=== PATIENT | female | born 1995 | race African-American/Black ===

== ENCOUNTER 2018-02-03 23:33 | Emergency (ER) | payer SELFPAY ==
[2018-02-03 23:48] VITALS: BP 112/72; PULSE 81; RESP 16; TEMP 36.4; O2SAT 98
--- NOTE | 2018-02-03 23:59 | ED.GENADUL_ITS ---
Discharge Plan Discharge Details Chief Complaint: RashLesion Primary Care Provider: YUNIOR,LOCAL ED Provider: Kota Cartwright Home Meds and New Rx's Prescriptions: No Action No Known Home Meds RF: 0 Medical Decision Making MDM Narrative Medical decision making narrative: 22-year-old female presents with history of recurrent small areas of abscess around the hair follicles of her left inner thigh. There is one area that was worsened today. She has not had fever, drainage, redness. She has otherwise recently been well. We will place on barrier cream and oral antibiotics; discussed with her return precautions to the ER. HPI - General Adult General Mode of arrival: ambulatory . Date/Time Provider Initiated Documentation: 02/03/18 23:40 . Limitations to Documentation: no limitations . Information obtained by: patient . History of Present Illness 22 year old F presents to the emergency department with the chief complaint of Folliculitis, described as moderate, Quality is described as aching, and is localized to the left and lower extremity. Patient reports no radiation. Patient started experiencing this day(s) and it has been constant. No relieving factors improve symptom(s), No exacerbating factors reported . Patient notes no other symptoms.. Patient did receive the following treatments prior to arrival, none Related Data Home Medications Medication Instructions Recorded Confirmed Unknown [No Known Home Meds] 03/22/17 02/03/18 Allergies Allergy/AdvReac Type Severity Reaction Status Date / Time No Known Allergies Allergy Unverified 02/03/18 23:47 General Stated Complaint: RashLesion DORENE: 3 Review of Systems Review of Systems 8 systems reviewed, [facility] Social History Smoking/Tobacco Use Status: Never Exam Narrative Exam Narrative: GEN: awake, alert, oriented 3. Pleasant, well groomed, interactive. HEAD: Normocephalic, atraumatic ENT: Mucous membranes moist, oropharynx unremarkable, External ear exam unremarkable EYES: PERRL, EOMI NECK: Full ROM, no AMY, no menigismus EXT: Full ROM, no edema, no rash. And neck: There are areas of folliculitis on the left proximal medial thigh. Minimally tender. No surrounding erythema, no drainage Neuro: Grossly normal neurologic exam, conversant, interactive. Psych: Speech fluent, thoughts congruent, affect normal Course Vital Signs Temperature 36.4 C L 02/03/18 23:48 Pulse 81 02/03/18 23:48 Respiratory Rate 16 02/03/18 23:48 Blood Pressure 112/72 02/03/18 23:48 Pulse Oximetry 98 02/03/18 23:48 Temperature 36.4 C L 02/03/18 23:48 Pulse 81 02/03/18 23:48 Respiratory Rate 16 02/03/18 23:48 Blood Pressure 112/72 02/03/18 23:48 Pulse Oximetry 98 02/03/18 23:48
[2018-02-04 00:36] VITALS: BP 112/72; PULSE 80; RESP 16; TEMP 36.4; O2SAT 98
[2018-02-04] MEDS: Sulfameth/Trimeth DS TAB 1 TAB PO (00:36)
== END 2018-02-04 00:43 | disposition home or self-care (01) ==
PROVIDERS: Emergency Provider Emergency Medicine
DX: L73.9 Follicular disorder, unspecified (principal)
CPT/HCPCS: 96374; 99284; 99283

== ENCOUNTER 2019-01-05 23:35 | Emergency (ER) | payer MEDICAID, SELFPAY ==
[2019-01-05 23:38] VITALS: BP 114/68; PULSE 79; RESP 22; TEMP 35.9; O2SAT 97
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
[2019-01-06 00:24] LABS: Bilirubin Negative (Negative); Blood Negative (Negative); Clarity Clear (Clear); Glucose Negative (Negative); Ketones Negative (Negative); Leukocyte Esterase Small (Negative); Nitrite Negative (Negative); Specific Gravity 1.015 (1.005-1.025); pH >= 9.0 (5-8)
[2019-01-06 00:27] LABS: *AMPHETAMINES SCREEN URINE Negative (Negative); *BARBITURATES SCREEN URINE Negative (Negative); *BENZODIAZEPINES SCREEN URINE Negative (Negative); Cannabinoids THC Negative (Negative); Cocaine Screen,Urine Negative (Negative); METHADONE URINE SCREEN Negative (Negative); OPIATES URINE SCREEN Negative (Negative)
[2019-01-06 00:32] LABS: Tricyclic Antidepressants Negative (Negative)
[2019-01-06 00:33] LABS: Bacteria Few HPF (Negative); C & S Indicated? No/Sq. Contamination; Casts Negative LPF (Negative); Crystals Few Amorphous HPF (Negative); Epithelial Cells Many HPF (Negative); Mucus Negative (Negative); RBC 0-2 (0-2); WBC 0-2 HPF (0-5)
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
== END 2019-01-06 01:10 | disposition home or self-care (01) ==
LOC: ER 01-06 02:27
PROVIDERS: Emergency Provider Student in an Organized Health Care Education/Training Program
DX: F32.9 Major depressive disorder, single episode, unspecified (principal); R45.851 Suicidal ideations; S60.812A Abrasion of left wrist, initial encounter; W26.0XXA Contact with knife, initial encounter; Z73.3 Stress, not elsewhere classified
CPT/HCPCS: 36415; 80053; 80307; 81025; 99283; 80320; 80329; 81003; 81015; 84443; 85025

== ENCOUNTER 2019-03-18 02:41 | Emergency (ER) | payer MEDICAID, SELFPAY ==
[2019-03-18 02:43] VITALS: BP 121/70; PULSE 73; RESP 18; TEMP 36.7; O2SAT 100
--- NOTE | 2019-03-18 03:06 | ED.GENADUL_ITS ---
Discharge Plan Disposition Patient Disposition: HOME Discharge Details Chief Complaint: Abd Prob Clinical Impression: Menses painful, Abdominal pain Primary Care Provider: ConsueloLocal ED Provider: Luke Hardwick Home Meds and New Rx's Prescriptions: No Action No Known Home Meds RF: 0 Discharge Instructions Instructions: Dysmenorrhea (ED), Abdominal Pain (ED) Additional Instructions: Please follow-up with [facility]. Call today to arrange timely follow-up. Please take ibuprofen over the counter. Take 600mg by mouth every 6 hours as needed for pain. Please take acetaminophen (tylenol) - 650mg every 6 hours by mouth as needed for pain. Return to the ER for any worsening or new concerning symptoms. Referrals: [facility] [Provider Group] Discharge Data Discharge Date/Time-TO BE ENTERED AT DEPARTURE: 03/18/19 08:36 Medical Decision Making 3:11 --23-year-old female with history of chronic intermittent painful menses, here with severe lower abdominal cramping that started earlier this evening. Pain is consistent with prior painful menstruation. Pain is tender in lower abdomen suprapubic. No peritoneal findings. Consider . I will check a urine test. Plan to treat pain with Toradol 15mg IM and Dilaudid 1mg IM. Plan to reassess. -- Urine neg. 5:00 -- On reassessment, patient completely pain free. Abdominal exam benign with no tenderness. Patient requesting discharge but feels fatigued and dizzy from analgesics. Plan to observe further in ED until symptoms improve. 5:50 -- Patient resting comfortably. Continues to be pain free. Discussed pelvic exam and patient provided informed refusal. 7:15 -- Patient now awake. Ambulating and no discomfort. Plan will be for her to follow-up with [facility]. Disposition decision was made weighing the risks and benefits of hospitalization versus outpatient treatment, the risk for further decompensation, and the patient's wishes. The patient was stable and requested discharge. Prior to discharge, my usual and customary return precautions were reviewed with the patient - this included follow-up instructions and reason to return to the emergency department if condition worsens, does not improve as expected, or other new concerns arise. HPI General Mode of arrival: ambulatory . Date/Time Provider Initiated Documentation: 03/18/19 02:53 . Limitations to Documentation: no limitations . Information obtained by: patient . HPI Narrative: 23-year-old female with history of chronic intermittent painful menses, here tonight with severe crampy lower abdominal pain described as cramping. Patient notes she started to have menstrual bleeding today. Bleeding is been normal, mild. She started to have cramping earlier today and cramping has been much worse tonight. Pain is now severe. Pain is localized to her lower abdomen in the suprapubic area and bilaterally. Pain is not focal to one side. She has no associated nausea or vomiting. No associated fever. Pain is exactly the same although slightly less severe than prior ED visit for dysmenorrhea. Patient denies any recent abnormal vaginal discharge. She does not recall the last time she was sexually active. Related Data Home Medications Medication Instructions Recorded Confirmed Unknown [No Known Home Meds] 01/05/19 03/18/19 Allergies Allergy/AdvReac Type Severity Reaction Status Date / Time No Known Allergies Allergy Unverified 03/18/19 02:47 General Stated Complaint: Abd Prob DORENE: 4 Review of Systems All systems reviewed & are unremarkable except as noted in HPI and below Constitutional Constitutional: Denies fever(s) Genitourinary Genitourinary: Reports as per HPI, Denies dysuria and Denies vaginal discharge [facility] Social History Smoking/Tobacco Use Status: Never Alcohol Intake: never Drug use: Never Substance use type: does not use Do you feel safe at home: Yes Do you feel safe in your relationship?: Yes Additional Social history: Pt is not alone; reports that she talked to her boyfriend about not feeling like the relationship was where it should be who went to her family and they did not believe her. She denies any type of abuse with words of physical means. Exam Const General: uncomfortable and well developed Orientation: alert HENMT Mouth: moist mucous membranes Eyes Conjunctivae: normal conjunctivae Sclera: normal sclerae Resp Auscultation: clear to auscultation bilaterally, no rales, no rhonchi and no wheezes Cardio Jugular venous pressure: no JVD Rate: regular rate and not tachycardic Rhythm: regular rhythm GI Palpation: soft, not firm, no guarding, no masses, not rigid and tender suprapubicly; with no rebound tenderness Auscultation: normal bowel sounds Skin General skin exam: no rashes or lesions noted Neuro General: alert, awake and tone normal Extrem General: no edema Course Vital Signs Vital signs: Vital Signs Temperature 36.7 C 03/18/19 02:43 Pulse 73 03/18/19 02:43 Respiratory Rate 18 03/18/19 02:43 Blood Pressure 121/70 03/18/19 02:43 Pulse Oximetry 100 03/18/19 02:43 Temperature 36.7 C 03/18/19 02:43 Temperature Source Skin 03/18/19 02:43 Pulse 73 03/18/19 02:43 Respiratory Rate 18 03/18/19 02:43 Respiratory Effort 03/18/19 02:48 Blood Pressure 121/70 03/18/19 02:43 Blood Pressure Position Supine 03/18/19 02:43 Pulse Oximetry 100 03/18/19 02:43 Oxygen Delivery Method Room Air 03/18/19 02:43 Oxygen Flow Rate 0 03/18/19 02:43 Pain Level 8 03/18/19 02:43
[2019-03-18] MEDS: Ketorolac 15 MG/ML VIAL IM (03:17)
[2019-03-18] MEDS: HYDROmorphone 2 MG/ML VIAL 1 MG IM (03:17)
--- NOTE | 2019-03-18 05:45 | NUR.NOTE ---
Nursing Note: Pt resting in bed with eyes closed, denies pain at this time, will continue to monitor.
[2019-03-18 05:49] VITALS: BP 84/37; PULSE 63; RESP 15; TEMP 37; O2SAT 100
[2019-03-18 06:08] LABS: Bilirubin Negative (Negative); Blood Large (Negative); Clarity Sl Cloudy (Clear); Glucose Negative (Negative); Ketones Negative (Negative); Leukocyte Esterase Trace (Negative); Nitrite Negative (Negative); Specific Gravity 1.025 (1.005-1.025); Urobilinogen 0.2 EU/dL (Up TO 0.2); pH 5.5 (5-8)
[2019-03-18 06:09] LABS: Epithelial Cells Moderate HPF (Negative); RBC >50 (0-2)
[2019-03-18 06:10] LABS: Bacteria Few HPF (Negative); C & S Indicated? No/Sq. Contamination; Casts Negative LPF (Negative); Crystals Negative HPF (Negative); Mucus Negative (Negative)
[2019-03-18 07:01] VITALS: BP 92/54; PULSE 72; RESP 16; O2SAT 100
[2019-03-18 07:33] VITALS: BP 99/55; PULSE 70; RESP 16; O2SAT 100
[2019-03-18 08:40] VITALS: BP 105/64; PULSE 70; RESP 16; TEMP 37; O2SAT 100
== END 2019-03-18 08:36 | disposition home or self-care (01) ==
PROVIDERS: Emergency Provider Student in an Organized Health Care Education/Training Program
DX: N94.6 Dysmenorrhea, unspecified (principal); R10.30 Lower abdominal pain, unspecified
CPT/HCPCS: 96372; 99284; 81003; 81015; J1885

== ENCOUNTER 2019-06-14 09:10 | Emergency (ER) | payer MEDICAID, SELFPAY ==
[2019-06-14 09:21] VITALS: BP 121/101; PULSE 86; RESP 16; TEMP 37.1; O2SAT 100
--- NOTE | 2019-06-14 09:40 | W.ED.GENAD ---
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 Be sure to eat before taking this medication. Use Tylenol 1000 mg every 6 hours for severe pain if needed. Rest activities as tolerated. Consider warm compresses to your abdomen. Please follow-up with [facility] as an outpatient for reevaluation and to discuss appropriate management and further testing of your complaints. Please follow-up with Sedrick gardner at [facility] for reevaluation. Return for any alarming symptoms, worsening or concerns sooner if needed. Referrals: [facility] [Provider Group] Medical Decision Making This is a 23-year-old patient who presents for severe abdominal cramping associated with her menstrual period. Patient reports she began to menstruate yesterday had mild cramping while working, was able to sleep last night and awoke with moderate cramping today. Patient reports intermittent cramping which is difficult to tolerate. Patient reports light vaginal bleeding which is typical of her menstrual cycle. Patient reports intermittent severe periods. Patient denies any obvious pattern to severe periods for example every other month. Patient reports no vaginal discharge. Denies dysuria, urgency or frequency. Denies headache or dizziness. Patient has been seen for similar complaints multiple times in the remote past. Reports she typically receives an injection which is moderately helpful. [facility] despite being referred. Discussed the use of control to better manage her menstrual cycles however she reports control med is against where she is from. Patient denies any other concerns or complaints at this time. We will provide Toradol as well as Tylenol for discomfort and reexamine. Patient does report improved symptoms at this time although some cramping does persist. Patient offered pelvic examination and initially consents, then ultimately declines and would prefer to wait until non-menstruating to have pelvic examination. I have encouraged this patient follow-up with Sedrick gardner at the [facility] as well as follow-up with [facility]. Patient has been encouraged to do so in the past and I reiterated the importance of having local provider and ELECTRICIAN involvement. Discussed the use of control which she is unwilling to take at this time for symptomatic relief. Discussed use of Tylenol and Motrin, conservative treatments. Patient feels somewhat improved at this time and is requesting discharge home. Patient tolerating p.o. food and fluids. Patient's abdominal exam remains benign. The patient was stable and requested discharge. Prior to discharge, my usual and customary return precautions were reviewed with the patient - this included follow-up instructions and reasons to return to the Emergency Department if conditions worsens, does not improve as expected, or other new concerns arise. HPI General Date/Time Provider Initiated Documentation: 06/14/19 09:37. HPI Narrative: This is a 23-year-old patient presenting to the emergency room for lower abdominal cramping. Patient reports she began her menstrual cycle yesterday while working reports she had mild cramping which was tolerable. Patient reports this morning she awoke with more severe abdominal cramping. Patient reports this is typical of her menstrual cycles. Patient reports she has intermittent severe cramping which is difficult to tolerate. Patient has been seen in the emergency room for this multiple times in the past. Patient reports this is similar to what she is experienced in the past. Patient reports pain is intermittent, cramping will cause pain approximately 8 out of 10. Denies any nausea, vomiting or bowel changes associated. Patient denies obvious headache or dizziness. Patient reports menstrual bleeding is light, typical. Patient denies vaginal discharge. Patient denies any back Denies any fever or ill feeling. No other concerns or complaints. 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 Review of Systems All systems reviewed & are unremarkable except as noted in HPI and below Constitutional Constitutional: Denies chills, Denies fatigue, Denies fever(s), Denies headache(s) and Denies malaise ENT Ears, Nose, Mouth, and Throat: Denies headache(s) Gastrointestinal Gastrointestinal: Reports cramping, Denies nausea and Denies vomiting Genitourinary Genitourinary: Denies hematuria, Reports light periods, Reports dysmenorrhea, Denies dysuria, Denies flank pain, Denies urinary urgency, Denies vaginal discharge and Denies vaginal pruritus Neurologic Neurologic: Denies headache(s) Endocrine Endocrine: Denies fatigue [facility] Social History Smoking/Tobacco Use Status: Never Alcohol Intake: never Drug use: Never Substance use type: does not use Do you feel safe at home: Yes Do you feel safe in your relationship?: Yes Additional Social history: Pt is not alone; reports that she talked to her boyfriend about not feeling like the relationship was where it should be who went to her family and they did not believe her. She denies any type of abuse with words of physical means. Exam Narrative Exam Narrative: CONST: Tearful patient, in no acute distress. Well hydrated. Alert and oriented. NECK: Normal visual inspection. FROM. Trachea midline. No Midline tenderness. CHEST: Normal insepection of the chest. RESP: Normal respiratory effort. Speaking full sentences. No cough. No audible wheezing. No retractions. CARDIO: No JVD. No murmur, regular rate and rhythm. MUSCULOSKELETAL: Normal Gait. FROM of all extremities. GI: Bowel sounds present in all 4 quadrants. No abdominal pain on exam with palpation. No peritoneal signs, rebound or guarding. Back: No CVA tenderness bilaterally SKIN: Normal. Dry. No rashes. NEURO: Alert and awake. Speech clear. PSYCH: Tearful. Cooperative. Course Vital Signs Vital signs: Vital Signs Temperature 37.1 C 06/14/19 09:21 Pulse 86 06/14/19 09:21 Respiratory Rate 16 06/14/19 09:21 Blood Pressure 121/101 H 06/14/19 09:21 Pulse Oximetry 100 06/14/19 09:21 Temperature 37.1 C 06/14/19 09:21 Temperature Source Skin 06/14/19 09:21 Pulse 86 06/14/19 09:21 Respiratory Rate 16 06/14/19 09:21 Respiratory Effort Non-Labored 06/14/19 09:21 Blood Pressure 121/101 H 06/14/19 09:21 Blood Pressure Position Sitting 06/14/19 09:21 Pulse Oximetry 100 06/14/19 09:21 Pain Level 8 06/14/19 09:21 Comment 06/14/19 09:21
[2019-06-14] MEDS: Ketorolac 15 MG/ML VIAL IVP (09:55)
[2019-06-14] MEDS: Acetaminophen 500 MG TAB 1000 MG PO (09:57)
--- NOTE | 2019-06-14 10:57 | NUR.NOTE ---
Nursing Note: Referral faxed to [facility] for follow up. Also, referral given to Care Management for need of a PCP. Rody Perez.
[2019-06-14 11:18] VITALS: BP 102/51; PULSE 56; RESP 15; TEMP 36.9; O2SAT 100
[2019-06-14 11:27] VITALS: BP 102/51; PULSE 56; RESP 15; TEMP 36.9; O2SAT 100
== END 2019-06-14 11:29 | disposition home or self-care (01) ==
PROVIDERS: Emergency Provider Physician Assistant
DX: N94.6 Dysmenorrhea, unspecified (principal)
CPT/HCPCS: 81025; 96374; 99284; 81003; 99283; J1885